=== PATIENT | male | born 1980 | race Caucasian/White ===

== ENCOUNTER 2017-07-17 14:43 | Emergency (ER) | payer SELFPAY ==
[~2017-07-17] VITALS: Ht 175.3 cm; Wt 72.7 kg
[~2017-07-17 14:43] MED LIST: NORCO 325 MG-51 TAB PO; PEN-VEE K500 MG PO
[2017-07-17 14:54] VITALS: BP 126/81; TEMP 98.1
[2017-07-17] MEDS ORDERED: PEN-VEE K500 MG PO (15:19)
[2017-07-17] MEDS ORDERED: NORCO 325 MG-51 TAB PO (15:19)
[2017-07-17 15:35] VITALS: PULSE 74
== END 2017-07-17 15:35 | disposition home or self-care (01) ==
LOC: COL.ER 14:43
DX: K08.89 Other specified disorders of teeth and supporting structures (principal); F17.210 Nicotine dependence, cigarettes, uncomplicated

== ENCOUNTER 2017-08-01 19:17 | Emergency (ER) | payer SELFPAY ==
[~2017-08-01] VITALS: Ht 175.3 cm; Wt 72.7 kg
[2017-08-01 19:20] VITALS: BP 117/73; PULSE 73; TEMP 98.1
[2017-08-01] MEDS ORDERED: AMOXICILLIN 8751 TAB PO (19:47)
== END 2017-08-01 19:58 | disposition home or self-care (01) ==
LOC: COL.ER 19:17
DX: K04.7 Periapical abscess without sinus (principal); F17.210 Nicotine dependence, cigarettes, uncomplicated

== ENCOUNTER 2021-09-16 14:54 | Emergency (ER) | payer SELFPAY ==
[~2021-09-16] VITALS: Ht 172.7 cm; Wt 72.7 kg
[~2021-09-16 14:54] MED LIST changes: +AMOXICILLIN 8751 TAB PO
[2021-09-16 15:04] VITALS: BP 146/113; TEMP 97.7
[2021-09-16] MEDS ORDERED: AMOXICILLIN 8751 TAB PO (15:26)
[2021-09-16 15:54] VITALS: PULSE 72
== END 2021-09-16 15:54 | disposition home or self-care (01) ==
LOC: COL.ER 14:54
DX: S61.215A Laceration without foreign body of left ring finger without damage to nail, initial encounter (principal); F17.210 Nicotine dependence, cigarettes, uncomplicated; W26.8XXA Contact with other sharp object(s), not elsewhere classified, initial encounter